=== PATIENT | female | born 1945 | race Caucasian/White ===

== ENCOUNTER 2019-10-06 17:46 | Emergency (ER) | payer MEDICARE ==
[~2019-10-06] VITALS: Ht 162.6 cm; Wt 63.5 kg
[~2019-10-06 17:46] MED LIST: ALBU6.7H9 INH; ALPR-624 PO; ASPI-10 PO; ATOR20TA PO; BUDE180A INH; CALC-1197 PO; CHOL10008 PO; DESL5TAB PO; FLUO20CA39 PO; IRBE150T51 PO; MAGN400C PO; OMEP40CA13 PO; POTA10CA44 PO; SPIIN IH; TRIA1CAP2 PO; VITC500T PO
[2019-10-06] MEDS ORDERED: HYDROcodone/acetaminophen 5mg/325mg tablet PO ONE (19:15)
[2019-10-06] MEDS ORDERED: HYDR-3965 PO (19:52)
[2019-10-06 20:22] VITALS: BP 149/98
== END 2019-10-06 20:18 | disposition home or self-care (01) ==
LOC: ER 17:46
DX: S82.002A Unspecified fracture of left patella, initial encounter for closed fracture (principal); S09.8XXA Other specified injuries of head, initial encounter; Z88.0 Allergy status to penicillin; Z88.8 Allergy status to other drugs, medicaments and biological substances; Z79.82 Long term (current) use of aspirin; Z79.899 Other long term (current) drug therapy; W19.XXXA Unspecified fall, initial encounter; Y93.01 Activity, walking, marching and hiking; Y92.89 Other specified places as the place of occurrence of the external cause; Y99.8 Other external cause status
CPT/HCPCS: 29505; 70450; 73130; 73564; 99284